=== PATIENT | female | born 1950 | race Caucasian/White ===

== ENCOUNTER → 2016-05-14 | Day surgery (SDC) | payer OTHER ==
[~2016-05-14] MED LIST: ACID REDUCER150 MG PO; AMARYL4 M1 PO; CARVEDILOL12.5 M1 PO; DIGOXIN125 MCG PO; DILTIAZEM 24HR360 MG PO; GLUCOPHAGE1000 M1 PO; HYDRALAZINE HCL25 M1 PO; LEVEMIR100 UNIT/1 SC; PRAVACHOL40 M1 PO; XARELTO20 M2 PO
--- NOTE | 2016-05-14 16:02 | Operative Report ---
Operative/Inv Procedure Report Surgery Date: 05/14/16 Name of Procedure: urethral sling, cystoscopy Pre-Operative Diagnosis: stress incontinence Post-Operative Diagnosis: same Estimated Blood Loss: less than 50ml Surgeon/Drum Drier: TIM CHI MD Anesthesia: laryngeal mask airway Implants: vaginal m,esh Complications: some difficulty placing the sling mesh due to the patient's habitus. Condition: stable Operative Indication: stress incontinence Operative/Procedure Note Note: This an operative dictation on patient Millie Wayne. She was identified in the holding area and consented for urethral sling cystoscopy. The risks benefits and alternatives of the surgery were given to the patient and the patient's daughters. All questions were answered. Patient was taken to the operating room placed on the operating table in the supine position. Once timeout was performed LMA anesthesia was given as well as IV antibiotics. She was placed in the dorsolithotomy position area she was prepped and draped in the standard sterile fashion. Cadet catheter was placed at the beginning of the surgery and the bladder was emptied and an the Cadet was placed in the patient's abdomen. I needed to have to assistance old open the labia majora to have adequate visualization of the vagina. 1% lidocaine was infiltrated into the anterior vaginal wall suburethrally. An incision was made taking care not to injure the urethra. Vaginal flaps are created taking care not to injure the urethra as well. The UltraSling kit was then opened and the trochars use place the sling and the obturator fascia. Given her body habitus and the limited access to her vagina the placement of the sling was very difficult. The first sling was not placed well and was removed. A second sling was then attempted and the left arm was placed first and was seen to be in good position. The pop of the trocar through the fascia was easily heard. The helical the trocar for the right side was then used and was placed with the good positioning as well. When the Prolene suture was used to tighten the sling it was a little looser than I like to see it but given the patient's body habitus and weight it was deemed to be appropriate. There was grossly irrigated bacitracin irrigation. The Prolene stitch was cut. The area was closed with running locking 3-0 Vicryl suture. There was no mesh in the vaginal fornices. The Cadet catheter was removed and a cystoscopy was performed. The bladder was globally inspected and no abnormalities were appreciated and there was no mesh in the bladder or the urethra. The ureteral orifices were in the normal anatomic position. The sponge and needle count were correct and of the case. Patient tolerated procedure well. Findings: no mesh in bladder or urethra. sling seen to be in a tension free manner. Discharge Disposition: PACU
== END ==
LOC: STS 04-30 07:00
DX: N39.3 Stress incontinence (female) (male) (principal); I48.2 Chronic atrial fibrillation; Z79.01 Long term (current) use of anticoagulants; E11.9 Type 2 diabetes mellitus without complications; Z79.84 Long term (current) use of oral hypoglycemic drugs
CPT/HCPCS: C1771; J0690; J2250